=== PATIENT | female | born 1970 | race Caucasian/White ===

== ENCOUNTER 2017-11-23 04:59 | Emergency (ER) | payer OTHER ==
[~2017-11-23] VITALS: Ht 167.6 cm; Wt 68.0 kg
[~2017-11-23 04:59] MED LIST: PROAIR HFA8.5 GM INH; TESSALON PERLE100 M1 PO; ZPAK PO
[2017-11-23 05:45] LABS: ABSOLUTE BASOPHILS 0.1 thou/uL (0.0-0.2); ABSOLUTE EOSINOPHILS 0.5 thou/uL (0.0-0.7); ABSOLUTE LYMPHOCYTES 3.4 thou/uL (0.8-5.3); ABSOLUTE MONOCYTES 0.6 thou/uL (0.0-1.2); ABSOLUTE NEUTROPHILS 3.5 thou/uL (1.6-8.1); EOSINOPHILS 6.3 %; HEMATOCRIT 39.3 % (37.0-47.0); HEMOGLOBIN 13.4 gm/dL (12.0-15.0); LYMPHOCYTES 42.3 %; MCV 91.4 fL (80.0-100.0); MONOCYTES 7.5 %; MPV 8.1 fl. (7.2-11.1); NUCLEATED RBCS 0 /100WBC; PLATELET COUNT* 230 thou/uL (150-400); POLYS 42.9 %; RBC 4.31 mil/uL (4.20-5.00); RDW-CV 13.2 % (10.5-14.5); WBC 8.1 thou/uL (4.0-11.0)
[2017-11-23 05:51] LABS: ANION GAP 11 mmol/L (7-16); BUN 9 mg/dL (7-18); CALCIUM 8.9 mg/dL (8.5-10.1); CHLORIDE 102 mmol/L (98-107); CO2 27 mmol/L (21-32); CREATININE 0.7 mg/dL (0.6-1.3); GLUCOSE 105 mg/dL (70-99); POTASSIUM 3.4 mmol/L (3.5-5.1); SODIUM 140 mmol/L (136-145)
[2017-11-23 05:57] LABS: ALBUMIN 4.1 g/dL (3.4-5.0); ALKALINE PHOSPHATASE 86 U/L (46-116); SGOT 33 U/L (15-37); SGPT 70 U/L (30-65); TOTAL BILIRUBIN 0.4 mg/dL (<0.1-1.0); TOTAL PROTEIN 7.8 g/dL (6.4-8.2); TROPONIN-I LEVEL <0.06 ng/mL (<0.06)
[2017-11-23] MEDS ORDERED: NORCO 5-325 TA1 EACH PO (07:58)
[2017-11-23 08:07] VITALS: BP 124/76
--- NOTE | 2017-11-23 15:08 | EKG ---
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
--- NOTE | 2017-11-23 15:09 | EKG ---
[place] [address] ELECTROCARDIOGRAM REPORT Name: LÁZARO GEE Room: [facility]#: [id number] Admission: 11/23/17 Attend Phys: Discharge: 11/23/17 Date of : 72 Report #: [id number] THIS REPORT FOR: //name// [facility] ED Test Date: 2017-11-23 Test Time: 07:37:20 Pat Name: LÁZARO GEE Department: Room: Gender: F Clinical Support Tech: DEE Ayers : 1970 Requested By: Portia Varner Order Number: [id number] MD: Eber Ohara Measurements Intervals [place] Rate: 62 P: 26 MI: 182 QRS: 37 QRSD: 92 T: 37 QT: 422 QTc: 429 Interpretive Statements Sinus rhythm Lead(s) III were not used for morphology analysis No previous ECG available for comparison Electronically Signed On 11-23-2017 15:08:58 CDT by Eber Ohara [email or web address] <ELECTRONICALLY SIGNED> By: Eber Ohara MD, [facility] 11/23/17 1508 6 6 Eber Ohara MD, FACC /EPI
== END 2017-11-23 08:12 | disposition home or self-care (01) ==
LOC: M.ERS 04:59
PROVIDERS: Personal Emergency Response Attendant
DX: R07.9 Chest pain, unspecified (principal); F17.200 Nicotine dependence, unspecified, uncomplicated; Z86.14 Personal history of Methicillin resistant Staphylococcus aureus infection; Z90.49 Acquired absence of other specified parts of digestive tract; Z88.2 Allergy status to sulfonamides

== ENCOUNTER 2017-11-26 16:15 | Emergency (ER) | payer OTHER ==
[~2017-11-26] VITALS: Ht 160 cm; Wt 71.2 kg
[~2017-11-26 16:15] MED LIST changes: +NORCO 5-325 TA1 EACH PO
[2017-11-26 16:18] VITALS: BP 182/110
[2017-11-26] MEDS ORDERED: PREDNISONE 10 M10 MG PO (17:37)
[2017-11-26] MEDS ORDERED: NORFLEX100 MG PO (17:37)
--- NOTE | 2017-11-27 13:25 | EKG ---
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: : 1970 Requested By: Estela Avitia Order Number: [id number] MD: Kin Reeves Measurements Intervals [place] Rate: 67 P: 38 GA: 140 QRS: -1 QRSD: 107 T: 29 QT: 398 QTc: 420 Interpretive Statements Sinus rhythm Possible anteroseptal infarct, old Baseline wander in lead(s) V3 Compared to ECG 11/23/2017 07:37:20 Myocardial infarct finding now present Electronically Signed On 11-27-2017 13:25:14 CDT by Kin Reeves [email or web address] <ELECTRONICALLY SIGNED> By: Kin Reeves MD, FACC 11/27/17 1325 1620 1620 Kin Reeves MD, FAC /EPI
== END 2017-11-26 17:52 | disposition home or self-care (01) ==
LOC: M.ERS 16:15
DX: R07.89 Other chest pain (principal); M54.12 Radiculopathy, cervical region; F17.210 Nicotine dependence, cigarettes, uncomplicated; Z88.1 Allergy status to other antibiotic agents; Z90.49 Acquired absence of other specified parts of digestive tract; Z86.14 Personal history of Methicillin resistant Staphylococcus aureus infection

== ENCOUNTER 2018-02-08 15:01 | Emergency (ER) | payer OTHER ==
[~2018-02-08] VITALS: Ht 160 cm; Wt 74.9 kg
[~2018-02-08 15:01] MED LIST changes: +NORFLEX100 MG PO; +PREDNISONE 10 M10 MG PO
[2018-02-08] MEDS ORDERED: MULTIVITAMINS1 EAC7 PO (15:16)
[2018-02-08 15:38] LABS: URINE BILIRUBIN NEGATIVE (Negative); URINE BLOOD NEGATIVE (Negative); URINE CLARITY CLEAR; URINE COLOR YELLOW; URINE GLUCOSE-RANDOM NEGATIVE (Negative); URINE KETONES NEGATIVE (Negative); URINE LEUKOCYTES-REFLEX NEGATIVE (Negative); URINE NITRITE-REFLEX NEGATIVE (Negative); URINE PROTEIN NEGATIVE (Negative); URINE SPECIFIC GRAVITY 1.015 (1.005-1.030); URINE UROBILINOGEN 0.2 E.U./dl (0.2-1.0)
[2018-02-08 15:45] LABS: AMP/METHAMP Negative (Negative); BARBITURATES Negative (Negative); BENZODIAZEPINES Negative (Negative); COCAINE Negative (Negative); METHADONE Negative (Negative); OPIATES Negative (Negative); PCP Negative (Negative); THC Negative (Negative)
[2018-02-08 15:46] LABS: ABSOLUTE BASOPHILS 0.1 thou/uL (0.0-0.2); ABSOLUTE EOSINOPHILS 0.3 thou/uL (0.0-0.7); ABSOLUTE LYMPHOCYTES 2.1 thou/uL (0.8-5.3); ABSOLUTE MONOCYTES 0.5 thou/uL (0.0-1.2); ABSOLUTE NEUTROPHILS 5.1 thou/uL (1.6-8.1); BASOPHILS 0.8 %; EOSINOPHILS 3.5 %; HEMATOCRIT 41.7 % (37.0-47.0); HEMOGLOBIN 14.2 gm/dL (12.0-15.0); LYMPHOCYTES 26.4 %; MCH 31.1 pg (26.0-34.0); MCHC 34.1 g/dL (28.0-37.0); MCV 91.3 fL (80.0-100.0); NUCLEATED RBCS 0 /100WBC; PLATELET COUNT* 278 thou/uL (150-400); POLYS 63.3 %; RBC 4.56 mil/uL (4.20-5.00); RDW-CV 12.7 % (10.5-14.5); WBC 8.1 thou/uL (4.0-11.0)
[2018-02-08 15:54] LABS: ANION GAP 11 mmol/L (7-16); BUN 7 mg/dL (7-18); CALCIUM 9.6 mg/dL (8.5-10.1); CHLORIDE 101 mmol/L (98-107); CO2 26 mmol/L (21-32); CREATININE 0.6 mg/dL (0.6-1.3); GLUCOSE 102 mg/dL (70-99); POTASSIUM 3.4 mmol/L (3.5-5.1); SODIUM 138 mmol/L (136-145)
[2018-02-08 16:02] LABS: ALBUMIN 4.5 g/dL (3.4-5.0); ALKALINE PHOSPHATASE 89 U/L (46-116); SGOT 57 U/L (15-37); SGPT 138 U/L (30-65); TOTAL BILIRUBIN 0.4 mg/dL (<0.1-1.0); TOTAL PROTEIN 8.2 g/dL (6.4-8.2); TROPONIN-I LEVEL <0.06 ng/mL (<0.06)
[2018-02-08] MEDS ORDERED: BENTYL 20 MG TA20 M1 PO (17:26)
[2018-02-08 17:40] VITALS: BP 109/78
--- NOTE | 2018-02-09 13:02 | EKG ---
[place] [address] ELECTROCARDIOGRAM REPORT Name: LÁZARO GEE Room: [facility]#: [id number] Admission: 02/08/18 Attend Phys: Discharge: 02/08/18 Date of : 72 Report #: [id number] THIS REPORT FOR: //name// [facility] ED Test Date: 2018-02-08 Test Time: 15:50:52 Pat Name: LÁZARO GEE Department: Room: Gender: F Baggage Porter: Jhonatan DE SANTIAGO : 1970 Requested By: Evelyn Oliva Order Number: [id number] MD: Eber Ohara Measurements Intervals [place] Rate: 81 P: 24 PA: 151 QRS: -8 QRSD: 88 T: 27 QT: 377 QTc: 438 Interpretive Statements Sinus rhythm Low voltage, precordial leads Possible anteroseptal infarct, old Compared to ECG 11/26/2017 16:20:04 Low QRS voltage now present Myocardial infarct finding still present Electronically Signed On 02-09-2018 13:02:15 CDT by Eber Ohara [email or web address] <ELECTRONICALLY SIGNED> By: Eber Ohara MD, [facility] 02/09/18 1302 1550 1550 Eber Ohara MD, [facility] /EPI
== END 2018-02-08 17:45 | disposition home or self-care (01) ==
LOC: M.ERS 15:01
PROVIDERS: Nurse Practitioner
DX: R42 Dizziness and giddiness (principal); R55 Syncope and collapse; R74.0 Nonspecific elevation of levels of transaminase and lactic acid dehydrogenase [LDH]; F17.200 Nicotine dependence, unspecified, uncomplicated; Z90.49 Acquired absence of other specified parts of digestive tract; Z86.14 Personal history of Methicillin resistant Staphylococcus aureus infection; Z88.2 Allergy status to sulfonamides; Z88.5 Allergy status to narcotic agent

== ENCOUNTER 2019-07-30 10:20 | Emergency (ER) | payer OTHER ==
[~2019-07-30] VITALS: Ht 167.6 cm; Wt 63.5 kg
[~2019-07-30 10:20] MED LIST changes: +BENTYL 20 MG TA20 M1 PO; +MULTIVITAMINS1 EAC7 PO
[2019-07-30 11:21] LABS: INFLUENZA A ANTIGEN Negative (Negative); INFLUENZA B ANTIGEN Negative (Negative)
[2019-07-30] MEDS ORDERED: PROAIR HFA8.5 GM INH (12:11)
[2019-07-30] MEDS ORDERED: PREDNISONE 20 M20 MG PO (12:11)
[2019-07-30] MEDS ORDERED: PROMETHAZI6.25 MG/5 PO (12:11)
[2019-07-30] MEDS ORDERED: TYLENOL WITH CO1 TA1 PO (12:11)
[2019-07-30] MEDS ORDERED: TESSALON PERLE100 MG PO (12:11)
[2019-07-30 12:31] VITALS: BP 145/68
== END 2019-07-30 12:32 | disposition home or self-care (01) ==
LOC: M.ERS 10:20
PROVIDERS: Physician Assistant
DX: J20.9 Acute bronchitis, unspecified (principal); J02.9 Acute pharyngitis, unspecified; J45.909 Unspecified asthma, uncomplicated; H92.09 Otalgia, unspecified ear; R07.9 Chest pain, unspecified; Z88.2 Allergy status to sulfonamides; Z91.030 Bee allergy status; Z91.012 Allergy to eggs; Z91.018 Allergy to other foods